=== PATIENT | male | born 1955 | race Caucasian/White ===

== ENCOUNTER 2018-05-21 12:00 | Inpatient (IN) | payer OTHER ==
[2018-06-13] MEDS ORDERED: BUPIVACAINE HCL/PF 0.25% (2.5MG/ML) 10 ML VIAL ONE (13:22)
[2018-06-13] MEDS ORDERED: fentaNYL CITRATE 250 MCG/5 ML VIAL ONE (13:44)
[2018-06-13] MEDS ORDERED: PROPOFOL 20 ML ONE (13:45)
[2018-06-13] MEDS ORDERED: ROCURONIUM BROMIDE 50 MG/5 ML VIAL ONE ×2 (13:45→14:54)
[2018-06-13] MEDS ORDERED: MIDAZOLAM HCL 2 MG/2 ML SINGLE DOSE VIAL ONE (13:45)
[2018-06-13] MEDS ORDERED: LIDOCAINE HCL/PF 2% SDV 5ML VIAL ONE (13:46)
[2018-06-13] MEDS ORDERED: DEXAMETHASONE SOD PHOSPHATE 4 MG/1 ML VIAL ONE ×2 (13:47→15:46)
[2018-06-13] MEDS ORDERED: ONDANSETRON 4 MG/2 ML VIAL ONE ×2 (13:47→15:46)
[2018-06-13] MEDS ORDERED: ceFAZolin SODIUM 1 GM VIAL ONE ×2 (14:12→21:27)
[2018-06-13] MEDS ORDERED: ePHEDrine SULFATE 50 MG/1 ML AMPULE ONE (14:38)
[2018-06-13] MEDS ORDERED: ceFAZolin SODIUM 1 GM VIAL IVPB ONE (14:38)
[2018-06-13] MEDS ORDERED: BUPIVACAINE HCL/PF (5 MG/ML) 30 ML VIAL IJ ONE (14:40)
[2018-06-13] MEDS ORDERED: LIDOCAINE HCL 1%, 10 MG/ML (50 mL VIAL) IJ ONE (14:40)
[2018-06-13] MEDS ORDERED: NEOSTIGMINE METHYLSULFATE 0.5 MG/ML - 10 ML MDV ONE (15:45)
[2018-06-13] MEDS ORDERED: GLYCOPYRROLATE 0.2 MG/1 ML VIAL ONE (15:46)
[2018-06-13] MEDS ORDERED: MIDAZOLAM HCL 2 MG/2 ML SINGLE DOSE VIAL IVPUSH PRN (16:13)
[2018-06-13] MEDS ORDERED: SODIUM CHLORIDE 1,000 ML IV SCH (16:15)
[2018-06-13] MEDS ORDERED: ACETAMINOPHEN 325 MG TABLET (FP) PO PRN (16:20)
[2018-06-13] MEDS ORDERED: oxyCODONE HCL 5 MG TABLET PO PRN ×3 (16:21→18:01)
[2018-06-13] MEDS ORDERED: ONDANSETRON 4 MG/2 ML VIAL IVPB PRN (16:23)
--- NOTE | 2018-06-13 16:25 | OP ---
Operative Note - Note: Operative Date: 06/13/18 Pre-Operative Diagnosis: Lung nodule Operation: Bronchoscopy; VATS; AMMY wedge; MLN sampling; intercostal nerve block. Findings: Bronch: wnl; VATS: nodule in AMMY, resected, frozen c/w lung ca, adhesions in chest to apex and mediastinum. Estimated Blood Loss (mls): 50 Drains & Tubes with Location: Left chest tube. Operative Report Dictated: Yes
[2018-06-13] MEDS ORDERED: HYDROmorphone *PCA* 10MG/50ML DISP.SYRIN PCA SCH (18:00)
--- NOTE | 2018-06-13 18:39 | CONSULT ---
Consult - text type - Consultation Consultation Note: Pulm/CCM Pt seen and examined in ICU CC: POD #0 after Bronchoscopy; VATS; AMMY wedge; MLN sampling; intercostal nerve block with Dr Flanagan. HPI: Briefly Mr Ni is a 62 y/o man with long standing tobacco use, HIV controlled on ARV therapy (CD4 >750), COPD, HTN, depressive disorder, glaucoma who relates unintentional weight loss and cough, presented today for planned VATS biopsy/ AMMY wedge resection. He was recovered in PACU, brought to ICU for O /n observation. Has L sided chest tube, no leak, sero-sang output, mild to moderate pain at CT side but without acute resp distress, normal hemodynamics. PMHx -COPD -HIV on ARV -Glaucoma Social History Smoking history Current every day smoker Have you smoked in the past 12 Yes months Hx Alcohol Use Yes: occas Active Medications Acetaminophen (Tylenol -) 650 mg PO Q4H PRN PRN Reason: PAIN 1-3 Docusate Sodium (Colace Liquid -) 100 mg PO TID BERNARD Gabapentin (Neurontin -) 600 mg PO TID BERNARD Heparin Sodium (Porcine) (Heparin -) 5,000 unit SQ BID B[facility] Cefazolin Sodium 1 gm/ (Dextrose) 50 mls @ 100 mls/hr IVPB Q8H [facility] Stop: 06/14/18 14:29 Sodium Chloride (Normal Saline -) 1,000 mls @ 75 mls/hr IV ASDIR [facility] Ipratropium [place] (Atrovent 0.02% Nebulizer -) 1 amp NEB RQID [facility] Ondansetron HCl (Zofran Injection) 8 mg IVPB Q6H PRN PRN Reason: NAUSEA Oxycodone HCl (Roxicodone -) 5 mg PO Q3H PRN PRN Reason: PAIN LEVEL 4-6 Oxycodone HCl (Roxicodone -) 10 mg PO Q3H PRN PRN Reason: PAIN LEVEL 7-10 Ambulatory Orders Escitalopram Oxalate [Lexapro -] 10 mg PO DAILY #30 tablet 03/22/18 Elviteg/Cob/Emtri/Tenof Alafen [Genvoya Tablet] 1 each PO DAILY #30 tablet 04/25 Multivitamin,Therapeutic [Oncovite] 1 each PO DAILY #30 tablet 04/25/18 Omeprazole 20 mg PO DAILY PRN #30 tablet.dr VELÁSQUEZ 1 04/25/18 Tiotropium [place] [Spiriva Respimat] 4 gm IH DAILY #1 mist.inhal 04/25/18 Albuterol Sulfate Inhaler - [Ventolin Hfa Inhaler -] 1 - 2 inh PO PRN PRN Clonazepam [Klonopin] 1 mg PO PRN PRN 06/12/18 Loratadine [Claritin -] 10 mg PO PRN PRN 06/12/18 Brimonidine Tartrate [Alphagan 0.2% -] 1 drop .ROUTE BID 06/13/18 Dorzolamide HCl [Trusopt 2%] 1 drop .ROUTE BID 06/13/18 Travoprost [Travatan Z] 5 ml OP HS 06/13/18 Vital Signs Temp 97.5 F L 06/13/18 18:30 Pulse 86 06/13/18 18:30 Resp 22 06/13/18 18:30 BP 139/87 06/13/18 18:30 Pulse Ox 100 06/13/18 18:30 Intake & Output 06/12/18 06/13/18 06/13/18 23:59 11:59 23:59 Intake Total 1675 Output Total 90 Balance 1585 Weight 59.874 kg Intake: IV 1575 Normal Saline - 1,000 ml 75 @ 75 mls/hr IV ASDIR [facility] Rx#:[id number] Oral 100 Output: Chest Tube Drainage 40 Urine 0 Void 0 Estimated Blood Loss 50 Other: Height 5 ft 10 in Body Mass Index (BMI) 18.9 Weight Measurement Method Stated by Patient No labs from today ROS: 10Pt review negative except as per HPI PE: Gen; Awake, INAD HENT: PERRL, no LAD PULM: L CT with sero-sang w/o leak but tidaling, no wheezes CV: RRR, no m/r/g appreciated ABD: soft NT ND Ext: w/w/p thin Neuro: non focal All Active Problems Abdominal pain (Acute) Bronchitis (Acute) Congestion of nasal sinus (Acute) Constipation (Acute) Cough (Acute) Elevated LFTs (Acute) Erectile dysfunction (Acute) Lung mass (Acute) Scrotal disorder (Acute) Tinea pedis (Acute) Vaccine counseling (Acute) AIDS (Chronic) Allergic rhinitis (Chronic) Anal dysplasia (Chronic) COPD (chronic obstructive pulmonary disease) (Chronic) Cataract (Chronic) Cervical spine pain (Chronic) Enlarged prostate (Chronic) Gallbladder polyp (Chronic) Glaucoma (Chronic) High risk sexual behavior (Chronic) Low back pain (Chronic) Nicotine dependence (Chronic) Pulmonary nodule (Chronic) RUQ abdominal pain (Chronic) Smoker (Chronic) A/ 62 y/o man with HIV on ARV, + tob hx now with AMYM wedge resection P/ -CT to LWS, monitor output -oxycodone for pain -nicotine patch (brought own) and advocate for cessation -cont eye gtts for glaucaom -restart home meds in am -f/u path -floor in am if stable o/n Sulaiman [facility] [id number]
--- NOTE | 2018-06-13 18:40 | CONSULT ---
Consultation: REQUESTING PROVIDER: CONSULT REQUEST: We have been asked to medically evaluate this patient for (ICU admission). HISTORY OF PRESENT ILLNESS: 62 yo male with PMH HIV, lung nodule, admitted to the ICU s/p VATS, AMMY wedge, MLN sampling, and intercostal nerve block. Unsure of his current mental status baseline, but he is still unable to cooperate with interview following general anesthesia. Pt drowsy and unable to remain focused. When asked about pain he says yes but cant really describe it. Denies SOB, chest pain, nausea, vomiting. REVIEW OF SYSTEMS: Unable to obtain full ROS due to pt status PHYSICAL EXAMINATION Vital Signs - 24 hr 06/13/18 06/13/18 06/13/18 11:29 11:45 16:04 Temperature 98.2 F 98.6 F Pulse Rate 87 94 H Respiratory 20 17 Rate Blood Pressure 119/83 140/68 O2 Sat by Pulse 100 96 Oximetry (%) GENERAL: Awake, in no acute distress. HEAD: Normal with no signs of trauma. EYES: PERRL, extraocular movements intact, sclera anicteric, conjunctiva clear. No lid lag. EARS, NOSE, THROAT: Ears normal, nares patent, oropharynx clear without exudates. Moist mucous membranes. NECK: supple without lymphadenopathy, JVD, or masses. LUNGS: Left chest tube in place. Course breath sounds on the left. CTA on the right. No wheezes. No accessory muscle use. HEART: Regular rate and rhythm, normal S1 and S2 without murmur, rub or gallop. ABDOMEN: Soft, nontender, not distended, hypoactive bowel sounds, no guarding, no rebound, no masses. MUSCULOSKELETAL: No bony deformities or tenderness. No CVA tenderness. UPPER EXTREMITIES: warm, well-perfused. No cyanosis. No clubbing. Cap refill <2 seconds. No peripheral edema. LOWER EXTREMITIES: warm, well-perfused. No calf tenderness. No peripheral edema. NEUROLOGICAL: Cranial nerves II-XII intact grossly in tact. SKIN: Warm, dry, normal turgor, no rashes or lesions noted. Laboratory Results - last 24 hr 06/13/18 10:34 Blood Type AB POSITIVE Antibody Screen Negative Active Medications Generic Name Dose Route Start Last Admin Trade Name Freq PRN Reason Stop Dose Admin Acetaminophen 650 mg 06/13/18 16:20 Tylenol - PO Q4H PRN PAIN 1-3 Docusate Sodium 100 mg 06/13/18 22:00 Colace Liquid - PO TID BERNARD Gabapentin 600 mg 06/13/18 22:00 Neurontin - PO TID BERNARD Heparin Sodium (Porcine) 5,000 unit 06/13/18 22:00 Heparin - SQ BID BERNARD Cefazolin Sodium 1 gm/ 50 mls @ 100 mls/hr 06/13/18 22:00 Dextrose IVPB 06/14/18 14:29 Q8H BERNADR Sodium Chloride 1,000 mls @ 75 mls/hr 06/13/18 16:15 Normal Saline - IV ASDIR BERNARD Ipratropium [place] 1 amp 06/13/18 16:30 Atrovent 0.02% Nebulizer - NEB RQID BERNARD Ondansetron HCl 8 mg 06/13/18 16:23 Zofran Injection IVPB Q6H PRN NAUSEA Oxycodone HCl 5 mg 06/13/18 18:01 Roxicodone - PO Q3H PRN PAIN LEVEL 4-6 Oxycodone HCl 10 mg 06/13/18 18:01 Roxicodone - PO Q3H PRN PAIN LEVEL 7-10 ASSESSMENT/PLAN: 62 yo male with PMH HIV, Lung nodule admitted to ICU for monitoring s/p VATS with AMMY wedge. Post op day 0 Neuro -unsure of pt baseline mental status, currently drowsy from general anesthesia Cardio -No known cardiac history Pulmonary -Non small cell lung cancer Post-op -advance diet as tolerated -no cummins -OOB as tolerated -Incentive spirometry DVT Prophylaxis -Heparin 5000 units SQ BID FEN -Fluids: NS @ 75 cc/hr -Electrolytes: check BMP -Nutrition: Clear liquids Disposition Monitor in the ICU
[2018-06-13] MEDS: oxyCODONE HCL 5 MG TABLET PO PRN (18:50)
[2018-06-13 20:13] LABS: BASO % 0.1 % (0-2.0); HEMATOCRIT 39.1 % (35.4-49); HEMOGLOBIN 12.2 GM/dL (11.7-16.9); LYMPH % 4.8 % (8-40); MCHC 31.1 g/dl (32.0-35.9); MEAN CELL VOLUME 80.4 fl (80-96); MEAN PLT VOLUME 9.8 fl (7.5-11.1); NEUT % 93.1 % (42.8-82.8); PLATELET COUNT 181 K/MM3 (134-434); RBC 4.87 M/mm3 (4.00-5.60); RDW 13.5 % (11.9-15.9); WHITE BLOOD COUNT 8.8 K/mm3 (4.0-10.0)
[2018-06-13 20:45] LABS: ALBUMIN 3.9 g/dl (3.4-5.0); ANION GAP 7 (8-16); BLOOD UREA NITROGEN 9 mg/dL (7-18); CALCIUM 8.7 mg/dL (8.5-10.1); CHLORIDE 105 mmol/L (98-107); CO2 29 mmol/L (21-32); GLUCOSE,RANDOM 150 mg/dL (74-106); MAGNESIUM 1.6 mg/dL (1.8-2.4); POTASSIUM 3.7 mmol/L (3.5-5.1); SGPT/ALT 30 U/L (12-78); SODIUM 141 mmol/L (136-145)
[2018-06-13 20:48] LABS: ALK PHOS 61 U/L (45-117); BILIRUBIN,TOTAL 0.2 mg/dL (0.2-1.0); CREATININE 0.8 mg/dL (0.7-1.3); PHOSPHOROUS 3.1 mg/dL (2.5-4.9); SGOT/AST 29 U/L (15-37); TOT PROT 7.8 g/dl (6.4-8.2)
[2018-06-13] MEDS: IPRATROPIUM BR 0.02% 0.5 MG/2.5 ML VIAL.NEB. NEB SCH (20:53)
[2018-06-13 21:19] LABS: ANISOCYTOSIS 1+; MACROCYTOSIS 1+; PLATELET ESTIMATE ADEQUATE
[2018-06-13] MEDS ORDERED: DEXTROSE 5%-WATER - 50 ML IVPB ONE (21:27)
[2018-06-13] MEDS: HEPARIN NA (PORCINE) 5,000 UNITS/ML 1ML VIAL SQ SCH (21:34)
[2018-06-13] MEDS: GABAPENTIN 300 MG CAPSULE (FP) PO SCH (21:34)
[2018-06-13] MEDS: CEFAZOLIN 1 GM in DEXTROSE 5%-WATER - 50 ML IVPB SCH (21:34)
[2018-06-13] MEDS: DOCUSATE NA 100 MG/10 ML UNIT-DOSE CUPS PO SCH (21:37)
[2018-06-14] MEDS ORDERED: DEXTROSE 5%-WATER - 50 ML IVPB ONE ×2 (06:07→11:58)
[2018-06-14] MEDS ORDERED: ceFAZolin SODIUM 1 GM VIAL ONE ×2 (06:07→11:58)
[2018-06-14] MEDS: GABAPENTIN 300 MG CAPSULE (FP) PO SCH ×4 (06:12→21:15)
[2018-06-14] MEDS: CEFAZOLIN 1 GM in DEXTROSE 5%-WATER - 50 ML IVPB SCH ×2 (06:12→14:53)
[2018-06-14] MEDS: oxyCODONE HCL 5 MG TABLET PO PRN (06:12)
[2018-06-14 06:34] LABS: HEMATOCRIT 39.9 % (35.4-49); HEMOGLOBIN 12.7 GM/dL (11.7-16.9); MCH 25.5 pg (25.7-33.7); MCHC 31.8 g/dl (32.0-35.9); MEAN CELL VOLUME 80.3 fl (80-96); MEAN PLT VOLUME 9.9 fl (7.5-11.1); MONO % 3.8 % (3.8-10.2); NEUT % 90.2 % (42.8-82.8); PLATELET COUNT 180 K/MM3 (134-434); RBC 4.98 M/mm3 (4.00-5.60); RDW 13.8 % (11.9-15.9); WHITE BLOOD COUNT 9.6 K/mm3 (4.0-10.0)
[2018-06-14 06:57] LABS: CHLORIDE 104 mmol/L (98-107); POTASSIUM 4.6 mmol/L (3.5-5.1); SODIUM 140 mmol/L (136-145)
[2018-06-14 07:07] LABS: ALBUMIN 3.6 g/dl (3.4-5.0); ALK PHOS 57 U/L (45-117); ANION GAP 8 (8-16); BILIRUBIN,TOTAL 0.4 mg/dL (0.2-1.0); BLOOD UREA NITROGEN 10 mg/dL (7-18); CALCIUM 8.5 mg/dL (8.5-10.1); CO2 28 mmol/L (21-32); CREATININE 0.7 mg/dL (0.7-1.3); GLUCOSE,RANDOM 120 mg/dL (74-106); MAGNESIUM 1.6 mg/dL (1.8-2.4); PHOSPHOROUS 3.6 mg/dL (2.5-4.9); SGOT/AST 39 U/L (15-37); SGPT/ALT 30 U/L (12-78); TOT PROT 7.6 g/dl (6.4-8.2)
[2018-06-14] MEDS ORDERED: MAGNESIUM OXIDE 400 MG TABLET (FP) PO ONE (07:31)
[2018-06-14] MEDS: IPRATROPIUM BR 0.02% 0.5 MG/2.5 ML VIAL.NEB. NEB SCH ×3 (08:00→20:45)
--- NOTE | 2018-06-14 08:50 | PN ---
Progress Note, Physician Chief Complaint: s/p L VATS L upper lobe wedge resection, mediastinal lymph node biopsy. under general anesthesia History of Present Illness: post op day one - Current Medication List Current Medications: Active Medications Acetaminophen (Tylenol -) 650 mg PO Q4H PRN PRN Reason: PAIN 1-3 Last Admin: 06/14/18 06:12 Dose: 650 mg Docusate Sodium (Colace Liquid -) 100 mg PO TID [facility] Last Admin: 06/13/18 21:37 Dose: Not Given Escitalopram Oxalate (Lexapro -) 10 mg PO DAILY [facility] Gabapentin (Neurontin -) 600 mg PO TID [facility] Last Admin: 06/14/18 06:12 Dose: 600 mg Heparin Sodium (Porcine) (Heparin -) 5,000 unit SQ BID [facility] Last Admin: 06/13/18 21:34 Dose: 5,000 unit Cefazolin Sodium 1 gm/ (Dextrose) 50 mls @ 100 mls/hr IVPB Q8H [facility] Stop: 06/14/18 14:29 Last Admin: 06/14/18 06:12 Dose: 100 mls/hr Sodium Chloride (Normal Saline -) 1,000 mls @ 75 mls/hr IV ASDIR [facility] Last Admin: 06/13/18 18:43 Dose: 75 mls/hr Ipratropium [place] (Atrovent 0.02% Nebulizer -) 1 amp NEB RQID [facility] Last Admin: 06/14/18 08:00 Dose: 1 amp Magnesium Sulfate (Magnesium Sulfate) 2 gm IVPB ONCE ONE Stop: 06/14/18 07:22 Non-Formulary Medication (Elviteg/Cob/Emtri/Tenof Alafen [Genvoya Tablet]) 1 each PO DAILY [facility] Ondansetron HCl (Zofran Injection) 8 mg IVPB Q6H PRN PRN Reason: NAUSEA Last Admin: 06/14/18 08:25 Dose: 8 mg Oxycodone HCl (Roxicodone -) 5 mg PO Q3H PRN PRN Reason: PAIN LEVEL 4-6 Last Admin: 06/14/18 06:12 Dose: 5 mg Oxycodone HCl (Roxicodone -) 10 mg PO Q3H PRN PRN Reason: PAIN LEVEL 7-10 Last Admin: 06/13/18 20:03 Dose: 5 mg - Objective Vital Signs: Vital Signs Temperature 98.3 F 06/14/18 06:00 Pulse Rate 69 06/14/18 06:00 Respiratory Rate 13 06/14/18 06:00 Blood Pressure 123/80 06/14/18 06:00 O2 Sat by Pulse Oximetry (%) 100 06/13/18 21:00 Constitutional: Yes: Well Nourished Cardiovascular: Yes: WNL Respiratory: Yes: On Nasal O2 Gastrointestinal: Yes: WNL Labs: CBC, BMP 06/14/18 05:30 06/14/18 05:30 Assessment/Plan complaining of mild nausea otherwise no adverse effects of anesthetic. Pain controlled. Dept of anesthesia will sign off care at this time
[2018-06-14] MEDS ORDERED: PANTOPRAZOLE 20 MG TABLET (FP) PO PRN (08:57)
[2018-06-14] MEDS ORDERED: LORATADINE 10 MG TABLET PO PRN ×3 (08:57→16:36)
[2018-06-14] MEDS ORDERED: ALBUTEROL SO4 8 GM HFA INHALER IH PRN ×3 (08:57→16:36)
[2018-06-14] MEDS: DOCUSATE NA 100 MG/10 ML UNIT-DOSE CUPS PO SCH ×3 (09:03→21:13)
--- NOTE | 2018-06-14 09:08 | CONSULT ---
Consultation: REQUESTING PROVIDER: Dr. Angeles CONSULT REQUEST: We have been asked to medically evaluate this patient for medical stability for transfer HISTORY OF PRESENT ILLNESS: 62 year old male with a hx of HIV on antiretroviral therapy (last CD4 > 750), COPD, HTN, glaucoma, depression presented to the hospital for elective bronchoscopy/VATs/AMMY wedge resection for evolving lung nodule. Patient is post- op day #1. He feels slight L sided chest wall pain rating around 3/10 in severity around the chest tube site. He additionally reports that he is slightly nauseous but has not vomited. Denies passing flatus or having BMs. He reports using his incentive spirometer and eating his breakfast without difficulty this morning. Patient reports that he would like to move around today. Patient denies fevers, chills, shortness of breath, abdominal pain, vomiting, diarrhea, calf tenderness, dysuria. All: NKDA Surg: eye surgery, AMMY wedge resection, rectal cyst resection () Smoke: current Alcohol: denies Drugs: denies PCP: Dr. Robles? Pulmonology: Dr. Darling Surgeon: Dr. Angeles REVIEW OF SYSTEMS: CONSTITUTIONAL: Absent: fever, chills, diaphoresis, generalized weakness, malaise, loss of appetite, weight change HEENT: Absent: rhinorrhea, nasal congestion, throat pain, throat swelling, difficulty swallowing, mouth swelling, ear pain, eye pain, visual changes CARDIOVASCULAR: Absent: chest pain, syncope, palpitations, irregular heart rate, lightheadedness , peripheral edema RESPIRATORY: shortness of breath Absent: cough, dyspnea with exertion, orthopnea, wheezing, stridor, hemoptysis GASTROINTESTINAL:nausea Absent: abdominal pain, abdominal distension, vomiting, diarrhea, constipation, melena, hematochezia GENITOURINARY: Absent: dysuria, frequency, urgency, hesitancy, hematuria, flank pain, genital pain MUSCULOSKELETAL: Absent: myalgia, arthralgia, joint swelling, back pain, neck pain SKIN: Absent: rash, itching, pallor HEMATOLOGIC/IMMUNOLOGIC: Absent: easy bleeding, easy bruising, lymphadenopathy, frequent infections ENDOCRINE: Absent: unexplained weight gain, unexplained weight loss, heat intolerance, cold intolerance NEUROLOGIC: Absent: headache, focal weakness or paresthesias, dizziness, unsteady gait, seizure, mental status changes, bladder or bowel incontinence PSYCHIATRIC: Absent: anxiety, depression, suicidal or homicidal ideation, hallucinations. PHYSICAL EXAMINATION Vital Signs - 24 hr 06/13/18 06/13/18 06/13/18 11:29 11:45 16:04 Temperature 98.2 F 98.6 F Pulse Rate 87 94 H Respiratory 20 17 Rate Blood Pressure 119/83 140/68 O2 Sat by Pulse 100 96 Oximetry (%) 06/13/18 06/13/18 06/13/18 16:20 16:35 16:50 Temperature Pulse Rate 80 78 87 Respiratory 18 22 18 Rate Blood Pressure 93/74 140/74 136/66 O2 Sat by Pulse 100 100 100 Oximetry (%) 06/13/18 06/13/18 06/13/18 17:05 17:20 17:35 Temperature Pulse Rate 74 74 94 H Respiratory 16 22 18 Rate Blood Pressure 149/79 154/79 167/90 O2 Sat by Pulse 96 100 96 Oximetry (%) 06/13/18 06/13/18 06/13/18 17:50 18:05 18:30 Temperature 97.7 F 97.5 F L Pulse Rate 94 H 94 H 86 Respiratory 18 18 22 Rate Blood Pressure 157/51 143/74 139/87 O2 Sat by Pulse 96 100 100 Oximetry (%) 06/13/18 06/13/18 06/13/18 19:00 20:00 21:00 Temperature 97.5 F L Pulse Rate 88 82 87 Respiratory 21 19 11 L Rate Blood Pressure 142/75 133/86 133/86 O2 Sat by Pulse 100 Oximetry (%) 06/13/18 06/13/18 06/14/18 22:00 23:00 00:00 Temperature Pulse Rate 94 H 76 76 Respiratory 24 10 L 16 Rate Blood Pressure 152/98 127/79 127/79 O2 Sat by Pulse Oximetry (%) 06/14/18 06/14/18 06/14/18 02:00 03:00 04:00 Temperature 98.4 F Pulse Rate 86 73 72 Respiratory 22 10 L 19 Rate Blood Pressure 130/86 133/77 127/85 O2 Sat by Pulse Oximetry (%) 06/14/18 06/14/18 06/14/18 05:00 06:00 08:00 Temperature 98.3 F Pulse Rate 73 69 68 Respiratory 14 13 20 Rate Blood Pressure 132/81 123/80 134/67 O2 Sat by Pulse Oximetry (%) GENERAL: A&Ox3, no acute distress EYES: PERRLA, EOMI ENT: Moist mucus membranes, poor dentition noted NECK: No JVD LUNGS: clear to auscultation but slightly decreased breath sounds noted on the left with mild expiratory wheezes CHEST: there is a chest tube present inside the left chest wall draining 110cc serosanguinous fluid HEART: RRR, no murmurs appreciated on exam ABDOMEN: thin, Soft, nontender, BS diminished in all 4 qudrants EXTREMITIES: 2+ pulses, no edema. NEUROLOGICAL: Cranial nerves II-XII intact. No focal deficits noted. Laboratory Results - last 24 hr 06/13/18 06/13/18 06/13/18 10:34 19:50 19:50 WBC 8.8 RBC 4.87 Hgb 12.2 Hct 39.1 MCV 80.4 MCH 25.0 L MCHC 31.1 L RDW 13.5 Plt Count 181 MPV 9.8 D Absolute Neuts (auto) 8.1 Neutrophils % 93.1 H D Neutrophils % (Manual) 90.0 H Band Neutrophils % 4.0 Lymphocytes % 4.8 L D Lymphocytes % (Manual) 3.0 L Monocytes % 2.0 L D Monocytes % (Manual) 3 L Eosinophils % 0.0 D Basophils % 0.1 Nucleated RBC % Platelet Estimate Adequate Platelet Comment No clumping noted Anisocytosis 1+ Macrocytosis 1+ Sodium 141 Potassium 3.7 Chloride 105 Carbon Dioxide 29 Anion Gap 7 L BUN 9 Creatinine 0.8 Creat Clearance w eGFR > 60 Random Glucose 150 H D Calcium 8.7 Phosphorus 3.1 Magnesium 1.6 L Total Bilirubin 0.2 AST 29 D ALT 30 Alkaline Phosphatase 61 Total Protein 7.8 Albumin 3.9 Blood Type AB POSITIVE Antibody Screen Negative 06/14/18 06/14/18 05:30 05:30 WBC 9.6 RBC 4.98 Hgb 12.7 Hct 39.9 MCV 80.3 MCH 25.5 L MCHC 31.8 L RDW 13.8 Plt Count 180 MPV 9.9 Absolute Neuts (auto) 8.6 Neutrophils % 90.2 H Neutrophils % (Manual) Band Neutrophils % Lymphocytes % 6.0 L D Lymphocytes % (Manual) Monocytes % 3.8 D Monocytes % (Manual) Eosinophils % 0.0 Basophils % 0.0 Nucleated RBC % 0 Platelet Estimate Platelet Comment Anisocytosis Macrocytosis Sodium 140 Potassium 4.6 D Chloride 104 Carbon Dioxide 28 Anion Gap 8 BUN 10 Creatinine 0.7 Creat Clearance w eGFR > 60 Random Glucose 120 H Calcium 8.5 Phosphorus 3.6 Magnesium 1.6 L Total Bilirubin 0.4 AST 39 H D ALT 30 Alkaline Phosphatase 57 Total Protein 7.6 Albumin 3.6 Blood Type Antibody Screen Active Medications Generic Name Dose Route Start Last Admin Trade Name Freq PRN Reason Stop Dose Admin Acetaminophen 650 mg 06/13/18 16:20 06/14/18 06:12 Tylenol - PO 650 mg Q4H PRN Administration PAIN 1-3 Docusate Sodium 100 mg 06/13/18 22:00 06/13/18 21:37 Colace Liquid - PO Not Given TID ON LICENSE OF [facility] Escitalopram Oxalate 10 mg 06/14/18 10:00 Lexapro - PO DAILY BERNARD Gabapentin 600 mg 06/13/18 22:00 06/14/18 06:12 Neurontin - PO 600 mg TID BERNARD Administration Heparin Sodium (Porcine) 5,000 unit 06/13/18 22:00 06/13/18 21:34 Heparin - SQ 5,000 unit BID BERNARD Administration Cefazolin Sodium 1 gm/ 50 mls @ 100 mls/hr 06/13/18 22:00 06/14/18 06:12 Dextrose IVPB 06/14/18 14:29 100 mls/hr Q8H BERNARD Administration Sodium Chloride 1,000 mls @ 75 mls/hr 06/13/18 16:15 06/13/18 18:43 Normal Saline - IV 75 mls/hr ASDIR BERNARD Administration Ipratropium [place] 1 amp 06/13/18 16:30 06/14/18 08:00 Atrovent 0.02% Nebulizer - NEB 1 amp RQID BERNARD Administration Magnesium Sulfate 2 gm 06/14/18 07:21 Magnesium Sulfate IVPB 06/14/18 07:22 ONCE ONE Non-Formulary Medication 1 each 06/14/18 10:00 Elviteg/Cob/Emtri/Tenof Alafen [Genvoya Tablet] PO DAILY ON LICENSE OF [facility] Ondansetron HCl 8 mg 06/13/18 16:23 06/14/18 08:25 Zofran Injection IVPB 8 mg Q6H PRN Administration NAUSEA Oxycodone HCl 5 mg 06/13/18 18:01 06/14/18 06:12 Roxicodone - PO 5 mg Q3H PRN Administration PAIN LEVEL 4-6 Oxycodone HCl 10 mg 06/13/18 18:01 06/13/18 20:03 Roxicodone - PO 5 mg Q3H PRN Administration PAIN LEVEL 7-10 ASSESSMENT/PLAN: 62 year old male with a hx of HIV on antiretroviral therapy (last CD4 > 750), COPD, HTN, glaucoma, depression presented to the hospital for elective bronchoscopy/VATs/AMMY wedge resection #POD #1 AMMY wedge resection: patient is clinically well-appearing -chest tube draining 110cc serosanguinous fluid -strict I's/O's, patient made > 1000c urine (no cummins) -NSR rhythm on monitor with a rate of 78 -BP remains stable at 151/82 -d/w ICU staff, potentially remove chest tube today -will get 3 doses of cephazolin -oxycodone 5mg Q3h for pain PRN, consider decreasing to Q4-Q6h -NS @ 75cc/hr fluid resuscitation, re-evaluate need for fluids after 1-2 bags -recommend frequent incentive spirometer use #HIV: patient is on his own retroviral therapy from home -CD4 count >750 -continue with home Genvoya medication #COPD: chronic -continue spiriva, atrovent, #Hypertension: patient is at 151/82 now -not on home medications -monitor BP #Glaucoma: not an acute issue -continue home eyedrop medications #Depression: chronic -continue lexapro #FEN -NS @ 75cc/hr -lytes wnl, recheck in AM -low sodium diet #Prophylaxis -continue SCDs #Disposition: -patient currently in ICU -once chest tube is removed can transfer to floors Thank you for this consultative opportunity. Visit type - Emergency Visit Emergency Visit: Yes ED Registration Date: 06/13/18 Care time: The patient presented to the Emergency Department on the above date and was hospitalized for further evaluation of their emergent condition. - New Patient This patient is new to me today: Yes Date on this admission: 06/14/18 - Critical Care Critical Care patient: Yes Total Critical Care Time (in minutes): 38 Critical Care Statement: The care of this patient involved high complexity decision making to prevent further life threatening deterioration of the patient 's condition and/or to evaluate & treat vital organ system(s) failure or risk of failure.
[2018-06-14] MEDS ORDERED: MAGNESIUM 2GM/50ML STERILE WATER IVPB IVPB ONE (09:15)
[2018-06-14] MEDS: HEPARIN NA (PORCINE) 5,000 UNITS/ML 1ML VIAL SQ SCH ×2 (09:32→21:13)
[2018-06-14] MEDS ORDERED: KETOROLAC TROMETHAMINE 15 MG/ML VIAL IVPUSH SCH ×2 (09:47→10:15)
--- NOTE | 2018-06-14 09:51 | PN ---
Progress Note (short form) - Note Progress Note: Thoracic Surgery POD#1 s/p vats wedge, LN sampling lung ca Doing well Pulm toilet with std ipratropium nebs OOB to chair, ambulate No leak on chest tube. OK to remove today. Wean oxygen.
[2018-06-14] MEDS ORDERED: MULTIVITAMINS THER W-MINERALS COMBO TABLET (FP) PO SCH (10:00)
[2018-06-14] MEDS ORDERED: DORZOLAMIDE 2% HCL OPHTHALMIC SOLUTION 10 ML BOTTLE OU SCH (10:00)
[2018-06-14] MEDS ORDERED: ESCITALOPRAM OXALATE 10 MG TABLET (FP) PO SCH (10:00)
[2018-06-14] MEDS ORDERED: BRIMONIDINE TARTRATE 0.2% OPHTHALMIC 5 ML BOTTLE OU SCH (10:00)
[2018-06-14] MEDS ORDERED: TIOTROPIUM BROMIDE (SPIRIVA) RESPIMAT INHALER IH SCH ×2 (10:00→13:15)
[2018-06-14] MEDS ORDERED: IPRATROPIUM BR 0.02% 0.5 MG/2.5 ML VIAL.NEB. NEB SCH (10:00)
--- NOTE | 2018-06-14 11:35 | PN ---
Progress Note (short form) - Note Progress Note: ID Consult dictated POD #1 VATS , AMMY nodule wedge resection HIV + stable COPD Await final path report Perioperative Cefazolin ART
--- NOTE | 2018-06-14 12:02 | PN ---
Teaching Attending Note Name of Resident: Da Stratton ATTENDING PHYSICIAN STATEMENT I saw and evaluated the patient. I reviewed the resident's note and discussed the case with the resident. I agree with the resident's findings and plan as documented. SUBJECTIVE: 62 y/o gentleman with h/o COPD, HIV, AMMY lung nodule , glaucoma, and depression who presented to [facility] for L upper lung resection . patient was diagnosed with AMMY nodule in 07/06, and with follow up this nodule increased in size. decision was made to perform a wedge resection of AMMY instead of a biopsy given strong suspicion for cancer given his smoking history. procedure was yesterday, now he is in ICU with CT in place. has minimal pain but controlled with oxydocone. has nausea. No vomiting . reports unintentional weight loss. has no BM since procedure. No abd pain. No fever or chills. OBJECTIVE: NAD , Awake , alert and cooperative. HEENT: EOMI, round pupils, slightly deformed L pupil, R> L , no facial droop. no facial droop. MMM. thyroid wiht no nodules or hypertrophy . CV: RRR, no MRG Lungs: CTAB Abd: soft, NT, ND , NL BS Ext: no edema . No tremor . CT in place with serosanguinous fluid. Cxray : with possible R base atelectasis . possible L perihilar pneumothorax. ASSESSMENT AND PLAN: 62 y/o gentleman with h/o COPD, HIV, AMMY lung nodule , glaucoma, and depression who presented to [facility] for L upper lung resection . 1- S/p L lung wedge resection , Lymph node sampling and chest tube placement. - pain control - monitor possible L perihilar pneumothorax. - CT management per CT Sx - Bowel regimen . - oksana-op Abx - zofran for nausea. Qtc 404 - follow path - dc IVF in am 2- AMMY Nodule. likely cancer. follow path. if cancer then staging and ONC follow up 3- h/o HIV: cont Genvoya 4- h/o depression : cont lexapro 5- h/o COPD: Inhalers and Nebs 6- Weight loss, likely due to cancer . TSH NL . f/u as out pt nutrition education 7- hypomagnesemia : replete. 8- Sq heparin for DVT px Thank you for this consultation
[2018-06-14 12:20] VITALS: BMI 19.1
--- NOTE | 2018-06-14 12:44 | PN ---
Teaching Attending Note Name of Resident: Doug Reeves ATTENDING PHYSICIAN STATEMENT I saw and evaluated the patient. I reviewed the resident's note and discussed the case with the resident. I agree with the resident's findings and plan as documented. SUBJECTIVE: Patient seen and examined in the ICU. Pain seems well controlled. No air leak. Intake & Output 06/11/18 06/12/18 06/13/18 06/14/18 23:59 23:59 23:59 23:59 Intake Total 2125 1015 Output Total 730 1160 Balance 1395 -145 Weight 132 lb 132 lb 133 lb Last Vital Signs Temp Pulse Resp BP Pulse Ox 98.4 F 72 16 123/72 100 06/14/18 10:00 06/14/18 10:00 06/14/18 10:00 06/14/18 10:00 06/14/18 09:00 Active Medications Acetaminophen (Tylenol -) 650 mg PO Q4H PRN PRN Reason: PAIN 1-3 Last Admin: 06/14/18 06:12 Dose: 650 mg Albuterol Sulfate (Ventolin Hfa Inhaler -) 2 puff IH Q6H PRN PRN Reason: SHORTNESS OF BREATH Brimonidine Tartrate (Alphagan 0.2% -) 1 drop OU BID [facility] Docusate Sodium (Colace Liquid -) 100 mg PO TID [facility] Last Admin: 06/14/18 09:03 Dose: 100 mg Dorzolamide HCl (Trusopt 2%) 1 drop OU BID [facility] Escitalopram Oxalate (Lexapro -) 10 mg PO DAILY [facility] Gabapentin (Neurontin -) 600 mg PO TID [facility] Last Admin: 06/14/18 06:12 Dose: 600 mg Heparin Sodium (Porcine) (Heparin -) 5,000 unit SQ BID [facility] Last Admin: 06/14/18 09:32 Dose: 5,000 unit Cefazolin Sodium 1 gm/ (Dextrose) 50 mls @ 100 mls/hr IVPB Q8H [facility] Stop: 06/14/18 14:29 Last Admin: 06/14/18 06:12 Dose: 100 mls/hr Sodium Chloride (Normal Saline -) 1,000 mls @ 75 mls/hr IV ASDIR [facility] Last Admin: 06/13/18 18:43 Dose: 75 mls/hr Ipratropium Lucile (Atrovent 0.02% Nebulizer -) 1 amp NEB RQID [facility] Last Admin: 06/14/18 08:00 Dose: 1 amp Ipratropium Lucile (Atrovent 0.02% Nebulizer -) 1 amp NEB Q6H [facility] Ketorolac Tromethamine (Toradol Injection -) 15 mg IVPUSH Q6H [facility] Stop: 06/19/18 10:14 Loratadine (Claritin -) 10 mg PO PRN PRN PRN Reason: allergies Multivitamins/Minerals (Theragran-M) 1 each PO DAILY [facility] Non-Formulary Medication (Elviteg/Cob/Emtri/Tenof Alafen [Genvoya Tablet]) 1 each PO DAILY [facility] Non-Formulary Medication (Travoprost [Travatan Z]) 5 ml OP HS [facility] Ondansetron HCl (Zofran Injection) 8 mg IVPB Q6H PRN PRN Reason: NAUSEA Last Admin: 06/14/18 08:25 Dose: 8 mg Oxycodone HCl (Roxicodone -) 5 mg PO Q3H PRN PRN Reason: PAIN LEVEL 4-6 Last Admin: 06/14/18 06:12 Dose: 5 mg Oxycodone HCl (Roxicodone -) 10 mg PO Q3H PRN PRN Reason: PAIN LEVEL 7-10 Last Admin: 06/13/18 20:03 Dose: 5 mg Pantoprazole Sodium (Protonix -) 20 mg PO DAILY [facility] Tiotropium Lucile (Spiriva Respimat) 4 puff IH DAILY [facility] PE: Gen; Awake, NAD HENT: (-) Pallor, (-) Icterus PULM: Left CT, no air leak, Clear lung crump CV: RRR, no m/r/g appreciated ABD: soft NT ND Ext: (+) PP Neuro: non focal Laboratory Results - last 24 hr 06/13/18 06/13/18 06/14/18 19:50 19:50 05:30 WBC 8.8 9.6 RBC 4.87 4.98 Hgb 12.2 12.7 Hct 39.1 39.9 MCV 80.4 80.3 MCH 25.0 L 25.5 L MCHC 31.1 L 31.8 L RDW 13.5 13.8 Plt Count 181 180 MPV 9.8 D 9.9 Absolute Neuts (auto) 8.1 8.6 Neutrophils % 93.1 H D 90.2 H Neutrophils % (Manual) 90.0 H Band Neutrophils % 4.0 Lymphocytes % 4.8 L D 6.0 L D Lymphocytes % (Manual) 3.0 L Monocytes % 2.0 L D 3.8 D Monocytes % (Manual) 3 L Eosinophils % 0.0 D 0.0 Basophils % 0.1 0.0 Nucleated RBC % 0 Platelet Estimate Adequate Platelet Comment No clumping noted Anisocytosis 1+ Macrocytosis 1+ Sodium 141 Potassium 3.7 Chloride 105 Carbon Dioxide 29 Anion Gap 7 L BUN 9 Creatinine 0.8 Creat Clearance w eGFR > 60 Random Glucose 150 H D Calcium 8.7 Phosphorus 3.1 Magnesium 1.6 L Total Bilirubin 0.2 AST 29 D ALT 30 Alkaline Phosphatase 61 Total Protein 7.8 Albumin 3.9 06/14/18 05:30 WBC RBC Hgb Hct MCV MCH MCHC RDW Plt Count MPV Absolute Neuts (auto) Neutrophils % Neutrophils % (Manual) Band Neutrophils % Lymphocytes % Lymphocytes % (Manual) Monocytes % Monocytes % (Manual) Eosinophils % Basophils % Nucleated RBC % Platelet Estimate Platelet Comment Anisocytosis Macrocytosis Sodium 140 Potassium 4.6 D Chloride 104 Carbon Dioxide 28 Anion Gap 8 BUN 10 Creatinine 0.7 Creat Clearance w eGFR > 60 Random Glucose 120 H Calcium 8.5 Phosphorus 3.6 Magnesium 1.6 L Total Bilirubin 0.4 AST 39 H D ALT 30 Alkaline Phosphatase 57 Total Protein 7.6 Albumin 3.6 IMP: POD # 1: Left VATS with AMMY wedge resection Active smoker Emphysema HIV Monitor CT output O2 as needed BD TX PRN No smoking advised VTE prophylaxis Follow up pathology Incentive Spirometry Floor Dr Sanchez Critical care time spent in reviewing chart, evaluating patient and formulating plan - 36 minutes.
[2018-06-14] MEDS ORDERED: PT OWN MED DRAWER 7, Y5N ONE (12:49)
--- NOTE | 2018-06-14 12:51 | CONS ---
INFECTIOUS DISEASE CONSULTATION DATE OF CONSULTATION: DATE OF DICTATION: 06/14/2018 The patient is a 62-year-old male evaluated for HIV infection and postop resection of lung nodule. The patient has a history of a left upper lobe lung nodule dating back to June 2017. He had been followed as an outpatient. Serial CAT scans showed increasing size of the nodule. The patient was admitted electively on June 13, 2018, for a VATS bronchoscopy and left upper lobe wedge resection of nodule. He is now postop number 1. He complains of some incisional pain. He denies any shortness of breath. He has been afebrile with a normal white blood cell count. Patient has received cefazolin perioperatively. He has no complaints of shortness of breath or cough. Patient has a heavy tobacco-use history. His QuantiFERON status is not available at the present time. PAST MEDICAL HISTORY: Positive for HIV infection. He reports being HIV positive for 30 years. He is adherent to antiretroviral therapy with an undetectable viral load and a T cell count of 796 from February of this year. No history of opportunistic infections. Past medical history also includes COPD, hypertension, glaucoma, BPH. ALLERGIES: No known allergies. MEDICATIONS: Include Genvoya, Zofran, Tylenol, cefazolin, Neurontin, Lexapro, Spiriva, Ventolin. SOCIAL HISTORY: Positive for heavy tobacco use, occasional EtOH. No history of active drug use. History of substance abuse treatment 10 years ago. SYSTEMS REVIEW: Neurologic: No loss of consciousness, seizure activity, focal weakness. Cardiac: Negative chest pain or palpitations. Respiratory: As per HPI. Gastrointestinal: Negative vomiting or diarrhea. Genitourinary: Negative for urinary tract infection. LABORATORY DATA: White count 9.6, hematocrit 39.9, platelet count 180. BUN 10, creatinine 0.7. CAT scan showed a pleural-based left upper lobe lung nodule. PHYSICAL EXAMINATION: General: He is awake and alert. He is in no acute respiratory distress. He is cachectic. Vital Signs: Temperature 98.4; blood pressure 123/72; pulse 72, regular; respirations 16 per minute. HEENT: Sclerae are anicteric. Oropharynx: No thrush. Poor dentition. Neck: Supple. Heart: Sounds S1, S2. Lungs: Diminished breath sounds bilaterally. Chest: Chest tube is in place, left chest. Abdomen: Soft. No tenderness elicited. No mass, rebound, or rigidity. Extremities: Negative for edema. IMPRESSION: 1. Postoperative day number 1 video-assisted thoracoscopic surgery bronchoscopy and left upper lobe wedge resection of nodule. 2. Human immunodeficiency virus positive, stable. 3. Chronic obstructive pulmonary disease. Continue cefazolin perioperatively for surgical prophylaxis. Continue antiretroviral therapy. Await final pathology of resected nodule. Thank you for the kind referral. VIDYA HOU M.D. [id number]
--- NOTE | 2018-06-14 13:11 | PN ---
Physical Exam: SUBJECTIVE: Patient seen and examined in the ICU, states he is feeling better than yesterday. States he is having some pain with deep inspirations but is otherwise comfortable. Denies fevers, chills, nausea, vomiting, chest pain other than at the site of the chest tube insertion. Discussed the importance of not smoking with the patient and he understands and says he will not smoke anymore. OBJECTIVE: Vital Signs Period Temp Pulse Resp BP Sys/Zheng Pulse Ox Last 24 Hr 97.5 F-98.6 F 68-94 10- 93-167/51-98 96-100 GENERAL: The patient is awake, alert, and fully oriented, in no acute distress. HEAD: Normal with no signs of trauma. EYES: PERRL, extraocular movements intact, sclera anicteric, conjunctiva clear. No ptosis. ENT: Ears normal, nares patent, oropharynx clear without exudates, moist mucous membranes. NECK: Trachea midline, full range of motion, supple. LUNGS: Breath sounds equal, clear to auscultation bilaterally, no wheezes, no crackles, no accessory muscle use. HEART: Regular rate and rhythm, S1, S2 without murmur, rub or gallop. ABDOMEN: Soft, nontender, nondistended, normoactive bowel sounds, no guarding, no rebound, no hepatosplenomegaly, no masses. EXTREMITIES: 2+ pulses, warm, well-perfused, no edema. NEUROLOGICAL: Cranial nerves II through XII grossly intact. Normal speech, gait not observed. PSYCH: Normal mood, normal affect. SKIN: Warm, dry, normal turgor, no rashes or lesions noted Laboratory Results - last 24 hr 06/13/18 06/13/18 06/14/18 19:50 19:50 05:30 WBC 8.8 9.6 RBC 4.87 4.98 Hgb 12.2 12.7 Hct 39.1 39.9 MCV 80.4 80.3 MCH 25.0 L 25.5 L MCHC 31.1 L 31.8 L RDW 13.5 13.8 Plt Count 181 180 MPV 9.8 D 9.9 Absolute Neuts (auto) 8.1 8.6 Neutrophils % 93.1 H D 90.2 H Neutrophils % (Manual) 90.0 H Band Neutrophils % 4.0 Lymphocytes % 4.8 L D 6.0 L D Lymphocytes % (Manual) 3.0 L Monocytes % 2.0 L D 3.8 D Monocytes % (Manual) 3 L Eosinophils % 0.0 D 0.0 Basophils % 0.1 0.0 Nucleated RBC % 0 Platelet Estimate Adequate Platelet Comment No clumping noted Anisocytosis 1+ Macrocytosis 1+ Sodium 141 Potassium 3.7 Chloride 105 Carbon Dioxide 29 Anion Gap 7 L BUN 9 Creatinine 0.8 Creat Clearance w eGFR > 60 Random Glucose 150 H D Calcium 8.7 Phosphorus 3.1 Magnesium 1.6 L Total Bilirubin 0.2 AST 29 D ALT 30 Alkaline Phosphatase 61 Total Protein 7.8 Albumin 3.9 06/14/18 05:30 WBC RBC Hgb Hct MCV MCH MCHC RDW Plt Count MPV Absolute Neuts (auto) Neutrophils % Neutrophils % (Manual) Band Neutrophils % Lymphocytes % Lymphocytes % (Manual) Monocytes % Monocytes % (Manual) Eosinophils % Basophils % Nucleated RBC % Platelet Estimate Platelet Comment Anisocytosis Macrocytosis Sodium 140 Potassium 4.6 D Chloride 104 Carbon Dioxide 28 Anion Gap 8 BUN 10 Creatinine 0.7 Creat Clearance w eGFR > 60 Random Glucose 120 H Calcium 8.5 Phosphorus 3.6 Magnesium 1.6 L Total Bilirubin 0.4 AST 39 H D ALT 30 Alkaline Phosphatase 57 Total Protein 7.6 Albumin 3.6 Active Medications Generic Name Dose Route Start Last Admin Trade Name Torinq PRN Reason Stop Dose Admin Acetaminophen 650 mg 06/13/18 16:20 06/14/18 06:12 Tylenol - PO 650 mg Q4H PRN Administration PAIN 1-3 Albuterol Sulfate 2 puff 06/14/18 09:32 Ventolin Hfa Inhaler - IH Q6H PRN SHORTNESS OF BREATH Brimonidine Tartrate 1 drop 06/14/18 10:00 06/14/18 12:00 Alphagan 0.2% - OU 1 drop BID [facility] Administration Docusate Sodium 100 mg 06/13/18 22:00 06/14/18 09:03 Colace Liquid - PO 100 mg TID [facility] Administration Dorzolamide HCl 1 drop 06/14/18 10:00 06/14/18 12:52 Trusopt 2% OU 1 drop BID [facility] Administration Escitalopram Oxalate 10 mg 06/14/18 10:00 Lexapro - PO DAILY [facility] Gabapentin 600 mg 06/13/18 22:00 06/14/18 06:12 Neurontin - PO 600 mg TID [facility] Administration Heparin Sodium (Porcine) 5,000 unit 06/13/18 22:00 06/14/18 09:32 Heparin - SQ 5,000 unit BID [facility] Administration Cefazolin Sodium 1 gm/ 50 mls @ 100 mls/hr 06/13/18 22:00 06/14/18 06:12 Dextrose IVPB 06/14/18 14:29 100 mls/hr Q8H [facility] Administration Sodium Chloride 1,000 mls @ 75 mls/hr 06/13/18 16:15 06/13/18 18:43 Normal Saline - IV 75 mls/hr ASDIR [facility] Administration Ipratropium Marana 1 amp 06/13/18 16:30 06/14/18 08:00 Atrovent 0.02% Nebulizer - NEB 1 amp RQID [facility] Administration Ipratropium Marana 1 amp 06/14/18 10:00 Atrovent 0.02% Nebulizer - NEB Q6H [facility] Ketorolac Tromethamine 15 mg 06/14/18 10:15 Toradol Injection - IVPUSH 06/19/18 10:14 Q6H [facility] Loratadine 10 mg 06/14/18 08:57 Claritin - PO PRN PRN allergies Multivitamins/Minerals 1 each 06/14/18 10:00 Theragran-M PO DAILY [facility] Non-Formulary Medication 1 each 06/14/18 10:00 Elviteg/Cob/Emtri/Tenof Alafen [Genvoya Tablet] PO DAILY [facility] Non-Formulary Medication 5 ml 06/14/18 22:00 Travoprost [Travatan Z] OP HS [facility] Ondansetron HCl 8 mg 06/13/18 16:23 06/14/18 08:25 Zofran Injection IVPB 8 mg Q6H PRN Administration NAUSEA Oxycodone HCl 5 mg 06/13/18 18:01 06/14/18 06:12 Roxicodone - PO 5 mg Q3H PRN Administration PAIN LEVEL 4-6 Oxycodone HCl 10 mg 06/13/18 18:01 06/13/18 20:03 Roxicodone - PO 5 mg Q3H PRN Administration PAIN LEVEL 7-10 Pantoprazole Sodium 20 mg 06/15/18 10:00 Protonix - PO DAILY [facility] Tiotropium Marana 4 puff 06/14/18 10:00 Spiriva Respimat IH DAILY [facility] ASSESSMENT/PLAN: 62 yo male with PMH HIV, COPD, HTN admitted to the ICU s/p VATS, AMMY wedge resection, MLN sampling with presumed diagnosis of Non Small Cell Lung Cancer Neuro -no known neuro issues at this time Cardio -HTN currently normotensive Pulmonary -s/p vats AMMY wedge resection Chest tube can be removed today Incentive spirometry -CT chest noted, emphysematous bullae noted diffusely discussed the importance of not smoking and the risk of air leak if further lung inflammation caused Ventolin 2 puffs Q6 PRN Atrovent NEB RQID GI -no known GI issues at this time HIV -continue Genvoya Pain control -no 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 -Oxycodone 5 mg PO Q3 PRN -Oxycodone 10 mg PO Q3 PRN -Tylenol 650 mg PO Q4 PRN DVT Prophylaxis -Heparin 5000 units SQ BID [facility] -Fluids: none -Electrolytes: Mg 1.6, repleted, check BMP in AM -Nutrition: Sodium controlled diet Disposition Can be transferred to Med/Surg Problem List - Problems (1) HIV (human immunodeficiency virus infection) Code(s): B20 - HUMAN IMMUNODEFICIENCY VIRUS [HIV] DISEASE (2) COPD (chronic obstructive pulmonary disease) Code(s): J44.9 - CHRONIC OBSTRUCTIVE PULMONARY DISEASE, UNSPECIFIED (3) Nicotine dependence Code(s): F17.200 - NICOTINE DEPENDENCE, UNSPECIFIED, UNCOMPLICATED (4) Pulmonary nodule Code(s): R91.1 - SOLITARY PULMONARY NODULE Visit type - Emergency Visit Emergency Visit: No - New Patient This patient is new to me today: Yes Date on this admission: 06/14/18 - Critical Care Critical Care patient: Yes Total Critical Care Time (in minutes): 40 Critical Care Statement: The care of this patient involved high complexity decision making to prevent further life threatening deterioration of the patient 's condition and/or to evaluate & treat vital organ system(s) failure or risk of failure.
[2018-06-14] MEDS ORDERED: KETOROLAC TROMETHAMINE 15 MG/ML VIAL IVPUSH PRN ×2 (13:15→16:36)
[2018-06-14] MEDS ORDERED: [UNRECOGNIZED DRUG - OTHER] PO SCH (15:30)
--- NOTE | 2018-06-14 15:31 | OPR ---
Patient Name: Gabriel Ni MR#: [id number] Date of Admission: 06/13/2018 Inpatient Procedure Procedure Date: 06/13/2018 Preoperative Diagnosis: 1. Lung cancer; 2. HIV; 3. Hepatitis C; 4. Active Smoker; 5. Glaucoma; 6. Cataracts; Postoperative Diagnosis: Same Procedure: Flexible bronchoscopy, left thoracoscopy, wedge resection, lymph node sampling. Indication: as above Findings: 1. Bronchoscopy: normal airway; 2. VATS: adhesions and bullae at apex; tumor in left upper lobe; level 5 adenopathy; frozen of nodule c/w carcinoma. Surgeon(s): Dr. Momo Flanagan; Cosurgeon: Dr. Luis Alberto Keller; Anesthesia: General Endotracheal Wound Classification: Clean Antibiotic Prophylaxis: Cefazolin Specimens Sent: left upper lobe wedge; level 5 lymph node; Complications: none Drains / Tubes / Catheters: 1 chest tube Hardware / Implants: n/a Blood / Fluid Losses: minimal Blood / Fluids Administered: per anesthesia Post-Operative Condition: stable, extubated to PACU Indications: This patient is a 62 year-old male smoker with the above diagnoses and a lung nodule. He was referred to [facility] for resection from Dr. Valiente. He was explained the risks, benefits, and alternatives of a bronchoscopy, thoracoscopy, thoracotomy, wedge resection, and agreed and understood. Dr. Keller was present as a cosurgeon due to the complexity of the procedure and the lack of other available qualified help. Details of Procedure: The patient was taken into the operating room and placed supine on the table. He was monitored with pulse oximetry and blood pressure monitoring, including an arterial line. Sequential compression devices were placed. Subcutaneous heparin was given. No cummins catheter was placed. He was given sedation and an endotracheal tube was placed. A bronchoscopy was performed to view the airway and for operative planning. Lung isolation was achieved with a elvira. He was then positioned in the right lateral decubitus position and lung isolation was confirmed. The chest was prepared and draped in sterile fashion. The first port was placed in the 7th intercostal space. We then placed a posterior and an anterior port. We identified the nodule and wedge- resected it. It was then removed in a specimen bag. We placed a chest tube and secured it. The lung was expanded again. Wounds were closed with absorbable sutures after expanding the lung. Sterile dressings were placed. The patient was then awakened and extubated. He tolerated the procedure well and was taken to the recovery room.
--- NOTE | 2018-06-14 15:37 | PROC ---
Procedure Note Procedure: The Left CT was removed today after reviewing the cxr with radiology and Dr. Flanagan. Reading from today mentioned a left pntx, this most likely is the suture line that is being read as a pntx. There are lung markings beyond this area. He remains clinically stable, no SOB. The tube was removed and a xeroform/ 4x4 gauze and tegaderm were applied. A repeat CXR was ordered for 4 pm today.
[2018-06-14] MEDS ORDERED: ACETAMINOPHEN 325 MG TABLET (FP) PO PRN (16:36)
[2018-06-14] MEDS ORDERED: oxyCODONE HCL 5 MG TABLET PO PRN ×2 (16:36)
[2018-06-14] MEDS ORDERED: ONDANSETRON 4 MG/2 ML VIAL IVPB PRN (16:36)
--- NOTE | 2018-06-14 20:38 | OP ---
DATE OF OPERATION: 06/13/2018 PREOPERATIVE DIAGNOSES: Lung cancer. Human immunodeficiency virus. Hepatitis C. Active smoker. Glaucoma. Cataract. POSTOPERATIVE DIAGNOSES: Lung cancer. Human immunodeficiency virus. Hepatitis C. Active smoker. Glaucoma. Cataract. PROCEDURE PERFORMED: Bronchoscopy, left video-assisted thoracoscopic surgery, left upper lobe wedge resection, mediastinal lymph node dissection, and intercostal nerve block. INDICATION: As above. FINDINGS: Bronchoscopy: Normal airway, no bronchial lesions, adhesions, and bulla at the apex, tumor in left upper lobe, level 5 adenopathy. Frozen section of the nodule confirmed adenocarcinoma. SURGEON: Momo Flanagan M.D. CO-SURGEON: Luis Alberto Carlson MD ANESTHESIA: General endotracheal. SPECIMENS SENT: Left upper lobe wedge, level 5 lymph node. COMPLICATIONS: None. DRAINS/TUBES/CATHETERS: One 28-Bulgarian chest tube. HARDWARE/IMPLANTS: Not applicable. BLOOD/FLUID LOSS: Minimal. BLOOD/FLUID ADMINISTERED: Per Anesthesia. POSTOPERATIVE CONDITION: Stable, extubated to PACU. INDICATION: A 62-year-old male, smoker with the above diagnosis and a lung nodule was referred for surgical resection and left upper lobe nodule. Patient was informed about risks, benefits, and alternative treatments and consented for surgery. I was the co-surgeon for this case due to the complexity of the procedure and the lack of other available qualified help. PROCEDURE IN DETAIL: Patient was brought into the OR, was placed in a supine position. IV access was done by the anesthesiologist. Said IV sedation was given. Patient was intubated with a single lumen tube. Bronchoscopy was performed. No endobronchial lesion. Bronchial elvira was inserted, and lung isolation was achieved. Patient was placed in right lateral decubitus position left side up, prepped and draped in sterile fashion. Three-hole technique was applied to this patient for VATS resection. The camera was inserted. No intrapleural seedings. The nodule was identified and resected using Endostapler. A left upper lobe wedge resection with good margin was performed. A level 5 lymph node sampling was done and sent for permanent histology. A 28-Bulgarian chest tube was placed. Hemostasis was secured. Incision was closed using 0 Vicryl at the level of fascia, 2-0 Vicryl at the level of subcutaneous tissue, and 3-0 Monocryl at the level of skin. Dr. Flanagan and I performed the procedure as dictated above. I was in the OR during the whole procedure and remained available thereafter. LUIS ALBERTO CARLSON M.D. [id number]
[2018-06-14] MEDS: DORZOLAMIDE 2% HCL OPHTHALMIC SOLUTION 10 ML BOTTLE OU SCH (21:14)
[2018-06-14] MEDS: BRIMONIDINE TARTRATE 0.2% OPHTHALMIC 5 ML BOTTLE OU SCH (21:14)
[2018-06-14] MEDS ORDERED: PATIENT'S OWN MEDICATION (NON-FORMULARY) (Travoprost [Travatan Z] 5 ML) OP SCH (22:00)
[2018-06-14] MEDS ORDERED: LATANOPROST 0.005% OPHTH SOLN 2.5ML BOTTLE OU SCH (22:00)
[2018-06-14] MEDS ORDERED: PATIENT'S OWN MEDICATION (NON-FORMULARY) (Travoprost [Travatan Z] 1 DROP) OU SCH (22:00)
[2018-06-15] MEDS: DOCUSATE NA 100 MG/10 ML UNIT-DOSE CUPS PO SCH ×2 (06:00→13:34)
[2018-06-15] MEDS: GABAPENTIN 300 MG CAPSULE (FP) PO SCH ×2 (06:01→13:34)
[2018-06-15] MEDS ORDERED: PT OWN MED DRAWER 7, Y5N ONE (06:53)
[2018-06-15] MEDS: IPRATROPIUM BR 0.02% 0.5 MG/2.5 ML VIAL.NEB. NEB SCH ×2 (07:25→11:16)
[2018-06-15 07:27] LABS: ANION GAP 6 (8-16); BLOOD UREA NITROGEN 17 mg/dL (7-18); CALCIUM 8.8 mg/dL (8.5-10.1); CHLORIDE 106 mmol/L (98-107); CO2 32 mmol/L (21-32); CREATININE 0.7 mg/dL (0.7-1.3); GLUCOSE,RANDOM 92 mg/dL (74-106); PHOSPHOROUS 2.2 mg/dL (2.5-4.9); POTASSIUM 3.9 mmol/L (3.5-5.1); SODIUM 144 mmol/L (136-145)
[2018-06-15 07:34] LABS: HEMATOCRIT 36.7 % (35.4-49); HEMOGLOBIN 11.8 GM/dL (11.7-16.9); MCH 25.5 pg (25.7-33.7); MCHC 32.1 g/dl (32.0-35.9); MEAN CELL VOLUME 79.6 fl (80-96); PLATELET COUNT 169 K/MM3 (134-434); RBC 4.62 M/mm3 (4.00-5.60); RDW 13.6 % (11.9-15.9); WHITE BLOOD COUNT 10.9 K/mm3 (4.0-10.0)
[2018-06-15] MEDS: BRIMONIDINE TARTRATE 0.2% OPHTHALMIC 5 ML BOTTLE OU SCH (09:26)
[2018-06-15] MEDS: DORZOLAMIDE 2% HCL OPHTHALMIC SOLUTION 10 ML BOTTLE OU SCH (09:26)
[2018-06-15] MEDS: HEPARIN NA (PORCINE) 5,000 UNITS/ML 1ML VIAL SQ SCH (09:27)
[2018-06-15] MEDS ORDERED: PANTOPRAZOLE 20 MG TABLET (FP) PO SCH ×2 (10:00)
[2018-06-15] MEDS ORDERED: MULTIVITAMINS THER W-MINERALS COMBO TABLET (FP) PO SCH (10:00)
[2018-06-15] MEDS ORDERED: ESCITALOPRAM OXALATE 10 MG TABLET (FP) PO SCH (10:00)
--- NOTE | 2018-06-15 10:04 | PN ---
Progress Note (short form) - Note Progress Note: POD#2 PT without any complaints of SOB/CP. Vital Signs Period Temp Pulse Resp BP Sys/Zheng Pulse Ox Last 24 Hr 98.2 F-99 F 72-96 16-20 112-144/67-78 95 GEN: Appears comfortable Left chest: dressing c/d/i CXR: stable left pntx as per report. CXR s/p chest tube removal seen by myself/ Dr. Flanagan. Microbiology 06/13/18 16:00 Lung - Left Upper Lobe Gram Stain - Final 06/13/18 14:23 Lung - Left AFB Smear Concentration - Final 06/13/18 14:23 Body Fluid - Other Gram Stain - Final 06/13/18 16:00 Lung - Left Upper Lobe Tissue Culture - Preliminary NO AEROBIC GROWTH, 24 HRS 06/13/18 14:23 Lung - Left Mycobacterial Culture - Preliminary 06/13/18 14:23 Lung - Left FRANCESCA Preparation - Preliminary 06/13/18 14:23 Lung - Left Fungal Culture - Preliminary 06/13/18 14:23 Body Fluid - Other Body Fluid Culture - Preliminary NO AEROBIC GROWTH, 24 HRS A/P: 59 yo male s/p Left VATS/wedge resection, POD#2 No further acute surgical issues, left CT removed and a question of a pntx on his post-operative films(prior and after the removal). He has remained stable and may pntx actually represent the suture line. Clinically no symptoms and saturing >95 on room air Continue dressings/may remove on Monday and shower Follow up with Dr. Flanagan in his office in 1 week. Discharge instrcutions completed for the patient.
--- NOTE | 2018-06-15 10:33 | PN ---
Progress Note (short form) - Note Progress Note: Thoracic Surgery POD#2 Pain better controlled. Tube removed. CXR as expected. Pain control regimen for discharge should include acetaminophen prn, gabapentin standing, tramadol prn, and oxycodone prn. May remove dressing Monday and shower. OK to discharge today or tomorrow if pain controlled well.
[2018-06-15] MEDS ORDERED: PNEUMOC 13-VAL CONJ-DIP CRM/PF 0.5 ML DISP.SYRIN IM ONE (11:06)
[2018-06-15] MEDS: traMADol HCL 50 MG TABLET PO PRN ×2 (11:18→16:41)
--- NOTE | 2018-06-15 14:02 | PATH ---
Surgical Pathology Report Patient Name: ABHINAV CAUSEY III [facility]. Rec. #: [id number] /Age/Gender: 1955 (Age: 62) / M Account: [id number] Location: [address] [place] [address]/[facility] Taken: 06/13/2018 Received: 06/13/2018 Reported: 06/15/2018 Physicians: Momo Flanagan M.D. Specimen(s) Received A: 1 CM LEFT UPPER LOBE NODULE B: NODE FROM LEVEL 5 Clinical History Lung left nodule Intraoperative Consult Diagnosis Lung wedge, frozen section: Adenocarcinoma. Margins are grossly negative. Snehal London M.D., 06/13/28 Final Diagnosis A. LUNG, LEFT UPPER LOBE NODULE, WEDGE EXCISION (FS): INVASIVE ADENOCARCINOMA, MODERATELY DIFFERENTIATED, ACINAR PREDOMINANT, MEASURES 1.2 CM IN GREATEST DIMENSION, MICROSCOPICALLY. VISCERAL PLEURAL INVASION NOT IDENTIFIED. LYMPHOVASCULAR INVASION NOT IDENTIFIED. PARENCHYMAL MARGINS ARE UNINVOLVED BY INVASIVE CARCINOMA. THE TUMOR IS AT 3 CM FROM CLOSEST PARENCHYMAL MARGIN. PATHOLOGIC STAGE (pTNM, AJCC 8th Edition): pT1b, pN0 See Surgical Pathology Cancer Case Summary below. B. LYMPH NODE FROM LEVEL 5, EXCISION: ONE LYMPH NODE, NEGATIVE FOR METASTATIC CARCINOMA (0/1). SEPARATE SMALL PORTION OF LYMPHOID TISSUE, NEGATIVE FOR METASTATIC CARCINOMA. Comment: Elastic stain performed and interpreted at [facility] on sections from block A1, A4 and A5 showed that tumor cells do not penetrate the visceral pleural elastic layer. Positive and negative controls (internal if applicable) show appropriate results. Intradepartmental case reviewed with consensus on diagnosis. Comments Lung Carcinoma: Surgical Pathology Cancer Case Summary (Based on AJCC 8th edition) Procedure _x_ Wedge resection Specimen Laterality _x_ Left Tumor Site _x_ Upper lobe Total Tumor Size Inclusive of Invasive and Lepidic Components (applies only to invasive nonmucinous adenocarcinoma with a lepidic component) _x_ Greatest dimension (centimeters): 1.3 cm Invasive Tumor Size (applies only to invasive nonmucinous adenocarcinoma with a lepidic component) _x_ Greatest dimension (centimeters): 1.2 cm Tumor Focality _x_ Single tumor Histologic Type _x_ Invasive adenocarcinoma, acinar predominant Other subtypes present: lepidic component, 5% Histologic Grade _x_ G2: Moderately differentiated Spread Through Air Spaces (CEDRIC) _x_ Not identified Visceral Pleura Invasion _x_ Not identified Lymphovascular Invasion _x_ Not identified Direct Invasion of Adjacent Structures _x_ No adjacent structures present Margins Parenchymal Margin _x_ Uninvolved by invasive carcinoma, the tumor is at 3 cm from the margin. Treatment Effect _x_ No known presurgical therapy Regional Lymph Nodes Number of Lymph Nodes Involved: 0 Number of Lymph Nodes Examined: 1 Specify beltran station examined: level 5 Pathologic Stage Classification (pTNM, AJCC 8th Edition) Primary Tumor (pT) pT1b: Tumor >1 cm, but =2 cm in greatest dimension Regional Lymph Nodes (pN) pN0: No regional lymph node metastasis Electronically Signed Anurag Ramos M.D. Gross Description A. Received fresh labeled "1 cm nodule left upper lung," is a 12.0 x 4.5 x 2.5 cm lung wedge with a stapled margin of resection. Sectioning reveals focal retraction of the pleura in the area of the mass and a defect in the pleura adjacent to the mass. Sectioning reveals a 1.4 x 1.3 x 0.7 cm bird don, solid mass. The mass abuts the pleura but does not appear to invade through the pleura. The mass is 3 cm from the closest staple line. The remaining lung parenchyma is bird-pink and spongy. A mortician supplies sales representative section of the mass is submitted for frozen section. Dairy Husbandry Teacher sections are submitted in 7 cassettes as follows: 1-frozen section residue of mass; 2-3-staple line; 8-8-vkgcltax submitted remainder of mass with pleura and surrounding lung parenchyma; 5-2-ecklegcjtg lung parenchyma. B. Received in formalin labeled "node from level V," are 2 black possible lymph nodes measuring 0.3 and 0.7 cm in greatest dimension. The specimens are submitted in toto in one cassette. 06/13/201806/13/2018
[2018-06-15] MEDS ORDERED: PNEUMOCOCCAL 23 VACCINE 0.5 ML VIAL IM ONE (14:30)
--- NOTE | 2018-06-15 14:42 | PN ---
Physical Exam: SUBJECTIVE: Patient 62 y/o male with history of HIV, COPD, HTN, glaucoma, depression, and hep C who is here for left lung wedge resection and lymph node biopsy. Patient reports he still has some pain at the sight of the resection. He has some shortness of breath with deep inhalation. No events over night. Patient has not had a bowel movement yet but reports he is passing gas. OBJECTIVE: Vital Signs Period Temp Pulse Resp BP Sys/Zheng Pulse Ox Last 24 Hr 98.2 F-99 F 72-96 17-20 112-144/67-78 95-95 GENERAL: awake, alert, and oriented EYES: PERRLA, EOMI ENT: Moist mucus membranes, poor dentition noted NECK: No JVD LUNGS: clear to auscultation but slightly decreased breath sounds noted on the left with mild expiratory wheezes CHEST: lungs clear to auscultation bilaterally, clean, intact incision on left lateral chest HEART: RRR, no murmurs appreciated on exam ABDOMEN: thin, Soft, nontender, EXTREMITIES: 2+ pulses, no edema. NEUROLOGICAL: Cranial nerves II-XII intact. No focal deficits noted. Laboratory Results - last 24 hr 06/15/18 06/15/18 06:10 06:10 WBC 10.9 H RBC 4.62 Hgb 11.8 Hct 36.7 MCV 79.6 L MCH 25.5 L MCHC 32.1 RDW 13.6 Plt Count 169 MPV 10.0 Sodium 144 Potassium 3.9 Chloride 106 Carbon Dioxide 32 Anion Gap 6 L BUN 17 Creatinine 0.7 Creat Clearance w eGFR > 60 Random Glucose 92 D Calcium 8.8 Phosphorus 2.2 L D Magnesium 2.0 D Active Medications Generic Name Dose Route Start Last Admin Trade Name Freq PRN Reason Stop Dose Admin Acetaminophen 650 mg 06/14/18 16:36 06/14/18 19:38 Tylenol - PO 650 mg Q4H PRN Administration PAIN 1-3 Albuterol Sulfate 2 puff 06/14/18 16:36 Ventolin Hfa Inhaler - IH Q6H PRN SHORTNESS OF BREATH Brimonidine Tartrate 1 drop 06/14/18 22:00 06/15/18 09:26 Alphagan 0.2% - OU 1 drop BID BERNARD Administration Docusate Sodium 100 mg 06/14/18 22:00 06/15/18 13:34 Colace Liquid - PO 100 mg TID BERNARD Administration Dorzolamide HCl 1 drop 06/14/18 22:00 06/15/18 09:26 Trusopt 2% OU 1 drp BID BERNARD Administration Escitalopram Oxalate 10 mg 06/15/18 10:00 06/15/18 09:27 Lexapro - PO 10 mg DAILY BERNARD Administration Gabapentin 600 mg 06/14/18 22:00 06/15/18 13:34 Neurontin - PO 600 mg TID BERNARD Administration Heparin Sodium (Porcine) 5,000 unit 06/14/18 22:00 06/15/18 09:27 Heparin - SQ 5,000 unit BID BERNARD Administration Ipratropium Aston 1 amp 06/14/18 20:00 06/15/18 11:16 Atrovent 0.02% Nebulizer - NEB 1 amp RQID BERNARD Administration Ketorolac Tromethamine 15 mg 06/14/18 16:36 Toradol Injection - IVPUSH 06/19/18 10:14 Q6H PRN PAIN LEVEL 6-10; IF PO NOT WRK Loratadine 10 mg 06/14/18 16:36 Claritin - PO Q24H PRN allergies Multivitamins/Minerals 1 each 06/15/18 10:00 06/15/18 09:27 Theragran-M PO 1 each DAILY [facility] Administration Non-Formulary Medication 1 each 06/15/18 10:00 Elviteg/Cob/Emtri/Tenof Alafen [Genvoya Tablet] PO DAILY [facility] Non-Formulary Medication 1 drop 06/14/18 22:00 Travoprost [Travatan Z] OU HS [facility] Ondansetron HCl 8 mg 06/14/18 16:36 Zofran Injection IVPB Q6H PRN NAUSEA Oxycodone HCl 5 mg 06/14/18 16:36 06/14/18 19:38 Roxicodone - PO 5 mg Q3H PRN Administration PAIN LEVEL 4-6 Oxycodone HCl 10 mg 06/14/18 16:36 Roxicodone - PO Q3H PRN PAIN LEVEL 7-10 Pantoprazole Sodium 20 mg 06/15/18 10:00 06/15/18 09:27 Protonix - PO 20 mg DAILY BERNARD Administration Pneumococcal Polyvalent Vaccine 0.5 ml 06/15/18 14:30 Pneumovax - IM 06/15/18 14:31 .ONCE ONE Tramadol HCl 50 mg 06/15/18 10:28 06/15/18 11:18 Ultram - PO 50 mg Q4H PRN Administration PAIN LEVEL 6-10 ASSESSMENT/PLAN: 62 year old male with a hx of HIV, COPD, HTN, glaucoma, depression here for POD 2 left lung wedge resection and lymph node sampling. #POD #2 AMMY wedge resection and lymph node biopsy: - NSR rhythm on monitor with a rate of 78 - BP remains stable at 144/77 - oxycodone 5mg Q3h for pain level 4-6, oxycodone 10 mg Q3H for pain level 7- 10 - NS @ 75cc/hr fluid resuscitation, re-evaluate need for fluids after 1-2 bags - recommend frequent incentive spirometer use - Zofran 8 mg IV Q6H QTC: 404 - protonix 20 mg po daily #HIV: patient is on his own retroviral therapy from home -CD4 count >750 -continue with home Genvoya medication #COPD -continue spiriva, atrovent #Hypertension -not on home medications -monitor BP #Glaucoma -continue home eyedrop medications #Depression -continue lexapro #FEN -lytes wnl, recheck in AM -low sodium diet #Prophylaxis -heparin TID #Disposition: monitor status after surgery
[2018-06-15 14:58] VITALS: BP 129/87; PULSE 92; TEMP 98.9
--- NOTE | 2018-06-15 15:11 | PN ---
Teaching Attending Note Name of Resident: Zeenat Carolina ATTENDING PHYSICIAN STATEMENT I saw and evaluated the patient. I reviewed the resident's note and discussed the case with the resident. I agree with the resident's findings and plan as documented. SUBJECTIVE: No fever or chills . No abd pain . L sided cp is better . walking . No BM . passed gas OBJECTIVE: NAD , Awake , alert and cooperative. CV: RRR, no MRG Lungs: CTAB Abd: soft, NT, ND , NL BS Ext: no edema . No tremor . ASSESSMENT AND PLAN: 62 y/o gentleman with h/o COPD, HIV, AMMY lung nodule , glaucoma, and depression who presented to [facility] for L upper lung resection . 1- S/p L lung wedge resection , Lymph node sampling and chest tube placement. - pain control -cxray with small but improved Px on my review . per surgery it might be suture line . d/c IVF f/u with CT sx as out pt 2- AMMY Nodule. likely cancer. follow path as out pt . 3- h/o HIV: cont Genvoya 4- h/o depression : cont lexapro 5- h/o COPD: Inhalers dispo : will Dc home today
--- NOTE | 2018-06-15 17:45 | DS ---
Physical Exam: SUBJECTIVE: Patient 62 y/o male with history of HIV, COPD, HTN, glaucoma, depression, and hep C who is here for left lung wedge resection and lymph node biopsy. Patient reports he still has some pain at the sight of the resection. He has some shortness of breath with deep inhalation. No events over night. Patient has not had a bowel movement yet but reports he is passing gas. OBJECTIVE: Vital Signs Period Temp Pulse Resp BP Sys/Zheng Pulse Ox Last 24 Hr 98.3 F-99 F 79-96 18-20 112-144/67-87 95-95 PHYSICAL EXAM GENERAL: awake, alert, and oriented EYES: PERRLA, EOMI ENT: Moist mucus membranes, poor dentition noted NECK: No JVD LUNGS: clear to auscultation but slightly decreased breath sounds noted on the left with mild expiratory wheezes CHEST: lungs clear to auscultation bilaterally, clean, intact incision on left lateral chest HEART: RRR, no murmurs appreciated on exam ABDOMEN: thin, Soft, nontender, EXTREMITIES: 2+ pulses, no edema. NEUROLOGICAL: Cranial nerves II-XII intact. No focal deficits noted. LABS Laboratory Results - last 24 hr 06/15/18 06/15/18 06:10 06:10 WBC 10.9 H RBC 4.62 Hgb 11.8 Hct 36.7 MCV 79.6 L MCH 25.5 L MCHC 32.1 RDW 13.6 Plt Count 169 MPV 10.0 Sodium 144 Potassium 3.9 Chloride 106 Carbon Dioxide 32 Anion Gap 6 L BUN 17 Creatinine 0.7 Creat Clearance w eGFR > 60 Random Glucose 92 D Calcium 8.8 Phosphorus 2.2 L D Magnesium 2.0 D HOSPITAL COURSE: Date of Admission:06/13/18 Patient 62 y/o male with history of HIV, COPD, HTN, glaucoma, depression, and hep C who is here for optional left lung wedge resection and lymph node biopsy. Dr. Flanagan preformed a left lung wedge resection on 06/13. A Chest tube was placed. The tube drained serosanguinous fluid. Patient monitored on tele and was found to have a normal rhythm with no acute events. Patient pain tolerated with oxycodone. Patient educated on incentive spirometer use. Chest tube removed, and patient oxygen saturation above 95. Patient sent home with acetaminophen for pain, gabapentin, and tramadol. Patient given instructions to remove dressing on monday and when to follow up with Dr. Flanagan. Patient passing gas and able to tolerate food. Patient has no complaints and is stable to go home. Patient will follow up with PCP in one week. CXR: persistent left pnemothorax at sight of chest tube Date of Discharge: 06/15/18 Minutes to complete discharge: 36 Discharge Summary Reason For Visit: LUNG NODULE Condition: Improved - Instructions Diet, Activity, Other Instructions: You were admitted to the hospital for removal of part of your left lung. Your surgery was preformed by Dr. Flanagan. The surgery went well and you recovered appropriately in the hospital. You should continue to use the incentive spirometer ten times an hour. Keep incision clean and dry. You may remove your dressing on this Monday(June 18) and shower. Follow-up with Dr. Flanagan in 1 week, call to schedule and appointment. IF you have Shortness of Breath or chest pain which is persistent, please seek medical attention immediately. You can resume your home medications as prescribed. You should follow up with your primary care physician within one week. Referrals: Momo Flanagan MD [Staff Physician] - 1 Week Yenny Robles FNP [Nurse Practitioner] - 1 Week Disposition: HOME - Home Medications Comprehensive Discharge Medication List: Ambulatory Orders Escitalopram Oxalate [Lexapro -] 10 mg PO DAILY #30 tablet 03/22/18 Elviteg/Cob/Emtri/Tenof Alafen [Genvoya Tablet] 1 each PO DAILY #30 tablet 04/25 Tiotropium Roberts [Spiriva Respimat] 4 gm IH DAILY #1 mist.inhal 04/25/18 Albuterol Sulfate Inhaler - [Ventolin HFA Inhaler -] 1 - 2 inh PO PRN PRN Clonazepam [Klonopin] 1 mg PO PRN PRN 06/12/18 Brimonidine Tartrate [Alphagan 0.2% -] 1 drop .ROUTE BID 06/13/18 Dorzolamide HCl [Trusopt 2% -] 1 drop .ROUTE TID 06/13/18 Travoprost [Travatan Z] 5 ml OP HS 06/13/18 Acetaminophen [Tylenol .Regular Strength -] 650 mg PO Q4H PRN #120 tablet Gabapentin [Neurontin -] 600 mg PO TID #180 capsule 06/15/18 Lactose-Reduced Food [Ensure Plus] 1 can PO TID #90 liquid 06/15/18 Oxycodone HCl 5 mg PO Q8H PRN #9 tablet MDD 3 tab 06/15/18 Tramadol HCl 50 mg PO Q8H PRN #15 tablet MDD 3 tab 06/15/18 This patient is new to me today: Yes Date on this admission: 06/15/18 Emergency Visit: No Critical Care patient: No - Discharge Referral Referred to [facility] No
== END 2018-06-15 16:55 | disposition home or self-care (01) | DRG 163 ==
LOC: EDSTATUS 12:00 → JSAMEDAYSX 06-13 05:22 → JICU 06-13 18:09 → J6S 06-14 17:06
PROVIDERS: ADMIT Internal Medicine; ATTEND Internal Medicine
PROC: 0BBJ4ZZ Excision of Left Lower Lung Lobe, Percutaneous Endoscopic Approach (ICD-10-PCS; principal; 2018-06-13 11:30)
PROC: 07B74ZX Excision of Thorax Lymphatic, Percutaneous Endoscopic Approach, Diagnostic (ICD-10-PCS; 2018-06-13 11:30)
PROC: 0BJ08ZZ Inspection of Tracheobronchial Tree, Via Natural or Artificial Opening Endoscopic (ICD-10-PCS; 2018-06-13 11:30)
DX: C34.12 Malignant neoplasm of upper lobe, left bronchus or lung (principal); B20 Human immunodeficiency virus [HIV] disease; Z68.1 Body mass index [BMI] 19.9 or less, adult; E83.42 Hypomagnesemia; J43.9 Emphysema, unspecified; B19.20 Unspecified viral hepatitis C without hepatic coma; F17.210 Nicotine dependence, cigarettes, uncomplicated; I10 Essential (primary) hypertension; F32.9 Major depressive disorder, single episode, unspecified; H40.9 Unspecified glaucoma; R63.4 Abnormal weight loss
CPT/HCPCS: 36415; 71045-TC-FY; 80048; 80053; 83735; 84100; 85025; 85027; 86850; 86900; 86901; 87070; 87075; 87102; 87116; 87205; 87206; 87210; 88307-TC; 88331-TC; 90732; 94010; 94640; 94760; G0009; J1644; J7030

== ENCOUNTER → 2019-07-23 | Outpatient (CLI) | payer OTHER | LOC: YHH 14:04 ==

== ENCOUNTER 2021-10-11 12:38 | Emergency (ER) | payer MEDICARE, OTHER ==
[2021-10-11 13:25] VITALS: TEMP 98.1; BMI 17.5
[2021-10-11] MEDS ORDERED: CASIRIVIMAB/IMDEVIMAB 10 ML in SODIUM CHLORIDE 100 ML IVPB ONE (13:26)
[2021-10-11 14:59] LABS: HEMATOCRIT 41.3 % (35.4-49); HEMOGLOBIN 13.2 GM/dL (11.7-16.9); MCH 25.7 pg (25.7-33.7); MCHC 31.9 g/dl (32.0-35.9); MEAN CELL VOLUME 80.6 fl (80-96); MEAN PLT VOLUME 9.5 fl (7.5-11.1); PLATELET COUNT 214 10^3/uL (134-434); RBC 5.13 M/mm3 (4.00-5.60); RDW 13.1 % (11.9-15.9); WHITE BLOOD COUNT 3.5 K/mm3 (4.0-10.0)
[2021-10-11 15:24] LABS: CALCIUM 9.3 mg/dL (8.5-10.1)
[2021-10-11 15:25] LABS: ALBUMIN 3.8 g/dl (3.4-5.0); BLOOD UREA NITROGEN 12.5 mg/dL (7-18)
[2021-10-11 15:28] LABS: CREATININE 0.8 mg/dL (0.55-1.3)
[2021-10-11 15:30] LABS: BILIRUBIN,TOTAL 0.5 mg/dL (0.2-1)
[2021-10-11 16:24] VITALS: BP 155/80; PULSE 82
== END 2021-10-11 16:21 | disposition home or self-care (01) ==
LOC: JER 12:38
DX: U07.1 COVID-19 (principal); B20 Human immunodeficiency virus [HIV] disease
CPT/HCPCS: 36415; 80053; 85027; 96374; 99284-25; Q0240